=== PATIENT | female | born 2000 | race Two or more races ===

== ENCOUNTER 2019-07-23 01:23 | Inpatient (IN) | payer BC ==
[~2019-07-23] VITALS: Ht 174 cm; Wt 92.7 kg
--- NOTE | 2019-07-23 01:41 | NUR ---
Pt presents to ed c/o n/v intermittent and LRQ abd painx2 days. Pt states able to tolerate po intake, but has had episodes of intolerance to po intake. States fever multiple days well controlled w/ tylenol. Denies any major medical hx. Denies any sick in house. Denies any dizziness/syncope. Monitoring applied. Vss. Call lightwithin reach. Attempting ua.
[2019-07-23] MEDS ORDERED: ONDANSETRON 2MG/ML, 2ML ONE (01:54)
[2019-07-23] MEDS ORDERED: MORPHINE SULFATE 4 MG/ML, 1ML ONE (01:55)
[2019-07-23] MEDS ORDERED: ONDANSETRON 2MG/ML, 2ML IVPush ONE (02:00)
[2019-07-23] MEDS ORDERED: SODIUM CHLORIDE 0.9% 1,000ML IVBOLUS ONE ×2 (02:00→06:00)
[2019-07-23] MEDS ORDERED: SODIUM CHLORIDE FLUSH 10ML SYR IVF ONE (02:00)
[2019-07-23] MEDS ORDERED: MORPHINE SULFATE 4 MG/ML, 1ML IVPush PRN (02:00)
[2019-07-23] MEDS ORDERED: CEFTRIAXONE PMX 1GM/50ML 50 ML ONE (03:05)
[2019-07-23 04:12] LABS: ALANINE AMINOTRANSFERASE 44 U/L (12-78); ALBUMIN 3.8 g/dL (3.4-5.0); ALKALINE PHOSPHATASE 80 U/L (45-117); ANION GAP 8 mmol/L (5-15); BILIRUBIN,TOTAL 0.8 mg/dL (0.2-1.0); CALCIUM 8.9 mg/dL (8.5-10.1); CHLORIDE 107 mmol/L (98-107); CREATININE 0.92 mg/dL (0.55-1.02); MEAN CORPUSCULAR HEMOGLOBIN 28.6 pg (27.0-34.8); MEAN CORPUSCULAR HGB CONC 33.5 g/dL (32.4-35.8); MEAN CORPUSCULAR VOLUME 85.6 fL (80-100); MEAN PLATELET VOLUME 7.5 fL (7.4-10.4); PLATELET COUNT 298 x10^3/uL (130-400); RED BLOOD COUNT 4.54 x10^6/uL (3.82-5.3); RED CELL DISTRIBUTION WIDTH 12.3 % (9.6-15.2); TOTAL PROTEIN 8.3 g/dL (6.4-8.2)
--- NOTE | 2019-07-23 04:13 | NUR ---
Patient's BP dropped; administered NS per oct.
[2019-07-23] MEDS ORDERED: KETOROLAC 30 MG/1 ML ONE (04:14)
[2019-07-23 04:28] LABS: BASOPHILS # (AUTO) 0.04 x10^3/uL (0-0.3); BASOPHILS % (AUTO) 0 % (0-1); EOSINOPHILS # (AUTO) 0.14 x10^3/uL (0-0.8); EOSINOPHILS % (AUTO) 1 % (1-7); LYMPHOCYTES # (AUTO) 1.49 x10^3/uL (1-6.1); LYMPHOCYTES % (AUTO) 11 % (22-44); MD SCAN; MONOCYTES # (AUTO) 1.48 x10^3/uL (0-1.4); MONOCYTES % (AUTO) 11 % (2-9); NEUTROPHILS # (AUTO) 9.96 x10^3/uL (1.8-8.0); NEUTROPHILS % (AUTO) 76 % (42-75)
[2019-07-23 04:35] LABS: RAPID INFLUENZA A Negative (Negative); RAPID INFLUENZA B Negative (Negative)
[2019-07-23 04:36] LABS: MICROSCOPIC INDICATED
[2019-07-23 04:37] LABS: CULTURE INDICATED? YES
--- NOTE | 2019-07-23 05:13 | NUR ---
Patient has no complaints at this time. Awaiting bed for admit.
[2019-07-23] MEDS ORDERED: POLYETHYLENE GLYCOL 17 GM PACKET PO PRN (05:30)
[2019-07-23] MEDS ORDERED: DOCUSATE 100 MG CAPSULE PO PRN (05:30)
[2019-07-23] MEDS ORDERED: ONDANSETRON 2MG/ML, 2ML IVPush PRN (05:30)
[2019-07-23] MEDS ORDERED: ACETAMINOPHEN 325 MG TABLET PO PRN (05:30)
[2019-07-23] MEDS ORDERED: morphine SULFATE 10 MG/ML, 1ML IVPush PRN (05:30)
[2019-07-23] MEDS ORDERED: PROMETHAZINE 25 MG/ML, 1ML IM PRN (05:30)
[2019-07-23] MEDS ORDERED: ONDANSETRON ODT 4 MG PO PRN (05:30)
[2019-07-23] MEDS ORDERED: KETOROLAC 30 MG/1 ML IVPush ONE (06:00)
[2019-07-23] MEDS: SODIUM CHLORIDE 0.9% 1,000 ML IV SCH ×3 (06:23→19:52)
[2019-07-23 06:47] LABS: FREE T4 (FREE THYROXINE) 1.14 ng/dL (0.76-1.46)
[2019-07-23 07:22] LABS: HEMOGLOBIN A1C 5.2 % (4.2-6.3)
[2019-07-23 08:19] VITALS: BP 113/73
[2019-07-23] MEDS: CEFTRIAXONE PMX 2GM/50ML 50 ML IV SCH (08:28)
[2019-07-23] MEDS: OXYcodone IR 5MG TABLET PO PRN ×2 (13:30→17:47)
[2019-07-23 15:41] VITALS: BP 108/71
[2019-07-23 18:56] VITALS: BP 101/67
[2019-07-24 00:38] VITALS: BP 118/63
[2019-07-24] MEDS: OXYcodone IR 5MG TABLET PO PRN ×4 (00:42→16:51)
[2019-07-24] MEDS: SODIUM CHLORIDE 0.9% 1,000 ML IV SCH (00:42)
[2019-07-24 01:58] VITALS: BP 115/74
[2019-07-24 05:15] LABS: MEAN CORPUSCULAR HGB CONC 32.9 g/dL (32.4-35.8); MEAN CORPUSCULAR VOLUME 88.1 fL (80-100); PLATELET COUNT 257 x10^3/uL (130-400); RED BLOOD COUNT 4.12 x10^6/uL (3.82-5.3); RED CELL DISTRIBUTION WIDTH 12.2 % (9.6-15.2)
[2019-07-24 05:22] LABS: ALBUMIN 2.9 g/dL (3.4-5.0); ANION GAP 6 mmol/L (5-15); CALCIUM 8.1 mg/dL (8.5-10.1); CHLORIDE 109 mmol/L (98-107)
[2019-07-24 05:25] LABS: ALANINE AMINOTRANSFERASE 34 U/L (12-78); ALKALINE PHOSPHATASE 75 U/L (45-117); BILIRUBIN,TOTAL 0.5 mg/dL (0.2-1.0); CHOL/HDL RATIO 2.5; CHOLESTEROL, TOTAL 125 mg/dL (140-239); HDL CHOL % 41 % (28-40); HDL CHOLESTEROL (DIRECT) 51 mg/dL (40-60); LDL CHOLESTEROL,CALCULATED 61 mg/dL (54-169); LDL/HDL RATIO 1.2 (0.5-3.0); TRIGLYCERIDES 64 mg/dL (50-200); VLDL CHOLESTEROL 13 mg/dL (0-25)
[2019-07-24] MEDS: CEFTRIAXONE PMX 2GM/50ML 50 ML IV SCH (06:03)
[2019-07-24 06:06] LABS: BASOPHILS # (AUTO) 0.04 x10^3/uL (0-0.3); BASOPHILS % (AUTO) 0 % (0-1); EOSINOPHILS # (AUTO) 0.15 x10^3/uL (0-0.8); EOSINOPHILS % (AUTO) 1 % (1-7); LYMPHOCYTES % (AUTO) 18 % (22-44); MD SCAN; MONOCYTES # (AUTO) 1.53 x10^3/uL (0-1.4); MONOCYTES % (AUTO) 14 % (2-9); NEUTROPHILS # (AUTO) 7.48 x10^3/uL (1.8-8.0); NEUTROPHILS % (AUTO) 67 % (42-75)
[2019-07-24] MEDS ORDERED: POTASSIUM CHLORIDE 20 MEQ TAB.ER.PRT PO ONE (08:30)
[2019-07-24 09:15] VITALS: BP 110/73
[2019-07-24 14:05] VITALS: BP 100/66
[2019-07-24] MEDS: TAMSULOSIN 0.4 MG CAP.ER.24H PO SCH (16:48)
[2019-07-24 18:41] VITALS: BP 118/77
[2019-07-25 01:45] VITALS: BP 103/67
[2019-07-25] MEDS: CEFTRIAXONE PMX 2GM/50ML 50 ML IV SCH (05:27)
[2019-07-25] MEDS: OXYcodone IR 5MG TABLET PO PRN (05:27)
[2019-07-25 09:44] LABS: ANION GAP 8 mmol/L (5-15); CALCIUM 8.6 mg/dL (8.5-10.1); CHLORIDE 107 mmol/L (98-107); CREATININE 0.74 mg/dL (0.55-1.02)
[2019-07-25 10:20] VITALS: BP 100/60
[2019-07-25] MEDS: TAMSULOSIN 0.4 MG CAP.ER.24H PO SCH (10:45)
[2019-07-25] MEDS ORDERED: POTASSIUM CHLORIDE 20 MEQ TAB.ER.PRT PO ONE (12:00)
[2019-07-25] MEDS ORDERED: ACET325T26 PO (12:04)
[2019-07-25] MEDS ORDERED: IBUP-1902 PO (12:04)
[2019-07-25] MEDS ORDERED: METH750T87 PO (12:04)
[2019-07-25] MEDS ORDERED: TAMS-11 PO (12:04)
[2019-07-25] MEDS ORDERED: CEFD300C37 PO (12:04)
[2019-07-25] MEDS ORDERED: FLU VACC QS2019-20 36MOS UP/PF 0.5 ML IM-VACC ONE (13:30)
== END 2019-07-25 14:44 | disposition home or self-care (01) | DRG 872 ==
LOC: ED 01:50 → EDIP 06:10 → 3N 06:16 → DCLOUNGE 07-25 14:25
PROVIDERS: ADMIT Internal Medicine; ATTEND Internal Medicine
DX: A41.9 Sepsis, unspecified organism (principal); N13.6 Pyonephrosis; B96.20 Unspecified Escherichia coli [E. coli] as the cause of diseases classified elsewhere; E87.6 Hypokalemia; Z82.49 Family history of ischemic heart disease and other diseases of the circulatory system
CPT/HCPCS: 36415; 74176; 80048; 80053; 80061; 80307; 81001; 83036; 83605; 83735; 84145; 84439; 84443; 84703; 85025; 87040; 87077; 87086; 87186; 87400; 87491; 87591; 90686; 96374; 96375; G0378; J0696; J1885; J2405; J2270; J7030